=== PATIENT | male | born 1945 | race Two or more races ===

== ENCOUNTER 2017-05-16 20:10 | Emergency (ER) | payer SELFPAY ==
[~2017-05-16] VITALS: Ht 185.4 cm; Wt 95.3 kg
--- NOTE | 2017-05-16 21:00 | NUR ---
PT BIBA#102 PT WAS FOUND SITTING AT THE [employer]ORE DRINKING, +ETOH, NAD NOTED, VSS, RESP EVEN AND UNLABORED, PUT ON HOSPITAL GOWN AND MONITOR. WAITING FOR MD SALGADO.
[2017-05-16 21:35] LABS: BASOPHILS # (AUTO) 0.1 /CMM (0.0-0.2); BASOPHILS % (AUTO) 0.6 % (0.0-2.0); EOSINOPHILS % (AUTO) 0.4 % (0.0-6.0); HEMATOCRIT 41 % (39-51); HEMOGLOBIN 12.9 g/dL (13.5-17.5); LYMPHOCYTES # (AUTO) 1.5 /CMM (0.8-4.8); LYMPHOCYTES % (AUTO) 17.1 % (20.0-44.0); MEAN CORPUSCULAR HEMOGLOBIN 25 PG (26.0-33.0); MEAN CORPUSCULAR HGB CONC 32 g/dl (31.0-36.0); MEAN CORPUSCULAR VOLUME 78 fL (80-96); MONOCYTES # (AUTO) 0.2 /CMM (0.1-1.30); MONOCYTES % (AUTO) 2.2 % (2.0-12.0); NEUTROPHILS # (AUTO) 7.1 /CMM (1.8-8.9); NEUTROPHILS % (AUTO) 79.7 % (43.0-81.0); PLATELET COUNT (AUTO) 239 /CMM (150-450); RDW COEFFICIENT OF VARIATION 13.9 (11.5-15.0); RED BLOOD CELL COUNT(AUTO) 5.22 MIL/uL (4.5-6.0); WHITE BLOOD COUNT (AUTO) 8.9 K/uL (4.3-11.0)
[2017-05-16 21:48] LABS: CALCIUM, SERUM 8.4 mg/dL (8.5-10.1); CREATININE 1.6 mg/dL (0.6-1.3); POTASSIUM 3.2 mmol/L (3.5-5.1)
[2017-05-16 22:05] LABS: ALBUMIN 3.7 g/dL (3.4-5.0); BILIRUBIN,TOTAL 0.3 mg/dL (0.2-1.0); TOTAL PROTEIN, SERUM 7.2 g/dL (6.4-8.2)
[2017-05-16] MEDS ORDERED: POTASSIUM CHLORIDE 20 MEQ TAB.PRT.SR PO ONE ×2 (22:30→23:01)
[2017-05-16] MEDS ORDERED: IV NS 0.9% 1,000 ML BAG IV ONE (22:30)
--- NOTE | 2017-05-16 23:17 | NUR ---
Patient is resting comfortably in bed with eyes closed. Easily aroused. VSS
--- NOTE | 2017-05-17 00:07 | NUR ---
RECEIVED REPORT FROM PRIMARY NURSE LATA AND CARLA REED AT THIS TIME. RESTING QUIETLY WITH NO S/S OF DISTRESS, SLOWLY AROUSABLE. RESP EVEN AND UNLABORED. ON MONITOR.
--- NOTE | 2017-05-17 01:06 | NUR ---
NO S/S OF DISTRESS NOTED. RESP EVEN AND UNLABORED. WILL CONTINUE TO MONITOR.
--- NOTE | 2017-05-17 02:12 | NUR ---
IV removed. Catheter intact and site benign. Pressure and 4x4 applied to site. No bleeding noted.
--- NOTE | 2017-05-17 02:20 | NUR ---
MOVED TO ROOM 4 AFTER ATTEMPTING TO LEAVE ER. STILL INTOXICATED. UNBALE TO GET A RIDE AT THIS TIME.
--- NOTE | 2017-05-17 02:30 | NUR ---
REPORT GIVEN TO NURSE SANTIAGO FOR RAMIN.
--- NOTE | 2017-05-17 04:24 | NUR ---
PT SLEEPING IN BED IN NO APPARENT DISTRESS, MD MADE AWARE WILL CONTINUE TO MONITOR.
--- NOTE | 2017-05-17 04:58 | NUR ---
PT WALKED WITH A STEADY GAIT, PT INFORMED HE IS GOING TO BE DISCHARGED AND HIS RIDE IS ON THEIR WAY PT STATES HE IS THANKFUL AND IS LYING ON THE BED WAITING FOR RIDE, MADE AWARE WILL CONTINUE TO MONITOR.
--- NOTE | 2017-05-17 05:29 | NUR ---
PT FAMILY PICKED UP PT, PT WALKED OUT WITH FAMILY WITH A STEADY GAIT, PT GIVEN ACI
[2017-05-17 05:31] VITALS: BP 122/74
== END 2017-05-17 05:32 | disposition home or self-care (01) ==
LOC: ER 20:11
DX: F10.129 Alcohol abuse with intoxication, unspecified (principal); D50.9 Iron deficiency anemia, unspecified
CPT/HCPCS: 36415; 80053; 85025; 96360; 99284; A4606; G0480 ×2; J7030; Z7610